=== PATIENT | female | born 2005 | race Caucasian/White ===

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

== ENCOUNTER → 2023-04-14 10:12 | Outpatient (CLI) | payer SELFPAY ==
[2023-04-14 21:02] LABS: Erythrocyte Sedimentation Rate 8 MM/HR (0-20)
[2023-04-14 21:12] LABS: Hepatitis B Surface Antigen NEGATIVE s/c (NEGATIVE)
[2023-04-14 21:13] LABS: TSH w/ Reflex to FT4 0.91 uIU/mL (0.47-4.68)
[2023-04-14 21:20] LABS: HIV 1 & 2 Ab/Ag 4th Gen Combo NEGATIVE (NEGATIVE)
[2023-04-14 23:22] LABS: Urine N gonorrhoeae NOT DETECTED
[2023-04-14 23:37] LABS: Urine Chlamydia NOT DETECTED
[2023-04-16 08:12] LABS: RPR Screen Non Reactive (Non Reactive)
== END ==
PROVIDERS: PCP Physician Assistant; Visit Provider Physician Assistant
DX: Z11.3 Encounter for screening for infections with a predominantly sexual mode of transmission (principal); M53.3 Sacrococcygeal disorders, not elsewhere classified; G89.29 Other chronic pain; M54.6 Pain in thoracic spine; M54.2 Cervicalgia; M54.50 Low back pain, unspecified
CPT/HCPCS: 84443; 85651; 86592; 87340; 87389; 87491; 87591